=== PATIENT | female | born 1955 | race Caucasian/White ===

== ENCOUNTER 2016-12-31 18:36 | Inpatient (IN) ==
[2016-12-31] MEDS ORDERED: Insulin DETEMIR 100 UNIT/ML X5UNITS SQ SCH (23:45)
[2016-12-31] MEDS ORDERED: Insulin DETEMIR 100 UNIT/ML per UNIT SQ ONE (23:45)
[2016-12-31] MEDS ORDERED: Losartan/HCTZ 50-12.5 TABLET PO SCH (23:45)
[2017-01-01] MEDS: Insulin LISPRO 300 UNITS/3 ML VIAL SQ SCH ×5 (00:13→19:57)
[2017-01-01] MEDS: *HR* OxyCODONE ER (12 HR) 10 MG TABLET PO SCH ×3 (00:14→16:54)
[2017-01-01] MEDS: Famotidine 20 MG TABLET PO SCH ×3 (00:14→20:01)
[2017-01-01] MEDS: Ondansetron ODT 4 MG TAB.RAPDIS SL PRN ×3 (00:28→17:02)
[2017-01-01] MEDS: Losartan/HCTZ 50-12.5 TABLET PO SCH (07:42)
[2017-01-01] MEDS: Insulin DETEMIR 100 UNIT/ML X5UNITS SQ SCH ×2 (09:02→20:01)
--- NOTE | 2017-01-01 15:42 | Internal Med History&Physical ---
Date of Encounter: 01/01/17 Time of Encounter: 15:05 Assessment and Plan (1) Low back pain Current visit: No Status: Chronic I told her an open MRI is needed to further evaluate the central canal stenosis , foraminal stenosis, and disc herniations seen on lumbar CT scan. I will prescribe scheduled Tylenol, Naprosyn, gabapentin, and increased the scheduled dose of OxyContin. She will be given tramadol prn. Qualifiers: Chronicity: chronic Back pain laterality: right Sciatica presence: with sciatica Sciatica laterality: sciatica of right side Qualified Code(s): M54.41 - Lumbago with sciatica, right side; G89.29 - Other chronic pain (2) Type 2 diabetes mellitus Current visit: No Status: Chronic We will check hemoglobin A1c in a.m. Continue glipizide and metformin for now. We will do Accu-Cheks with SSI. Qualifiers: Diabetes mellitus complication status: without complication Diabetes mellitus assisted insulin use: with medical terminologist use Qualified Code(s): E11.9 - Type 2 diabetes mellitus without complications; Z79.4 - rn long term care (current) use of insulin (3) Hypertension Current visit: No Status: Chronic Continue Hyzaar and monitor blood pressure. Qualifiers: Hypertension type: essential hypertension Qualified Code(s): I10 - Essential (primary) hypertension Internal Medicine - H&P: HPI Chief complaint: Back and right hip pain Admitted From: Hospital to Hospital Transfer Plans for Post Hospital Care: Home History of present illness: Ms. Joe is a 61 year old female who was hospitalized at [facility] December 29 after presenting with worsening low back and right hip pain. She had some improvement in the pain during her hospital stay. She was seen by a pain management who recommended MRI but the patient declined a closed MRI stating she is claustrophobic. She was transferred to [facility] swing bed for inpatient rehabilitation therapy prior to returning to independent living. She states she has had chronic low back pain for several years. It has worsened over the past 4-6 months especially in the past month. She tried OTC ibuprofen, aspirin, and Tylenol at home prior to [facility] hospitalization. A CT of the LS spine during her [facility] stay showed severe central canal narrowing at L4-5 with mild narrowing at L3-4 and L5-S1. She had foraminal narrowing bilaterally at multiple levels. She had disc bulging present at multiple levels. She was treated with IV steroids and oral narcotics. Denies specific injury to her back or hip. She has a diagnosis of arthritis but denies gout or other known bone joint or muscle disorders. Past Med Surg Social Fam HX - Past Medical History Medical history: asthma, diabetes, hypertension Psychiatric history: no psych history - Past Surgical History Surgical History: hysterectomy - Social History Smoking Status: Never smoker Smokeless Tobacco Status: No Alcohol use: none Drug use: none - Family History Mother Hx Family Cardiac Disorders: Yes Internal Medicine - H&P: Meds Albuterol Sulfate [Albuterol Inhaler] 2 puff IH Q4HR PRN 01/20/16 [History] glipiZIDE [Glipizide] 10 mg PO BIDWM 01/20/16 [History] metFORMIN [Glucophage] 1,000 mg PO BIDWM 01/20/16 [History] Calcium Carbonate [Tums] 1,000 mg PO Q4HR PRN 12/29/16 [History] Insulin Glargine [Lantus] 38 unit SQ BID 12/29/16 [History] Potassium 500 mg PO DAILY 12/29/16 [History] Losartan/Hydrochlorothiazide [Hyzaar 100-25 Tablet] 1 tab PO DAILY 12/30/16 [ History] Allergies codeine Allergy (Verified 12/29/16 16:10) Rash All Systems PM: A 10-system review of systems was performed and is negative for pertinent findings except as documented above in the HPI. Review of systems: Gen.: She states her weight has been fairly stable in the past few months Cardiovascular: She has history of hypertension but denies [place] heart failure angina DVT or pulmonary embolus Respiratory: She is a lifelong nonsmoker. She has a diagnosis of asthma. She denies testing for TAMIA GI: She has had cholecystitis in the past but has not had cholecystectomy. She denies disorders of her liver or exocrine pancreas : She has had occasional UTI. She denies other kidney or bladder disorders. Neurologic: She denies large distribution strokes or seizures. She has been diagnosed with diabetic peripheral neuropathy Endocrine: She was diagnosed with DM 2 approximately age 48. She denies thyroid disease or hyperlipidemia Hematology/oncology: She denies blood disorders cancers or anemia Psychiatric: She denies anxiety depression or other mental health issues Musk skeletal: As per history of present illness - Constitutional Vitals: Temp Pulse Resp BP Pulse Ox 97.7 F 70 15 149/72 97 01/01/17 06:51 01/01/17 11:04 01/01/17 14:28 01/01/17 11:04 01/01/17 14:28 Exam: Gen.: She is a well-developed morbidly obese female who appears in mild-severe pain depending on position HEENT: Head is atraumatic and normocephalic. Eyes: EOMI. There is no scleral icterus. Mouth: Mucosa is moist Neck: Supple and nontender. There is no thyromegaly or adenopathy noted. Heart: Regular without murmurs gallops or ectopics Lungs: No wheezes or crackles are heard Abdomen: She has a large abdomen. It is nontender to palpation. Extremities: There is no cyanosis edema or clubbing noted. Dorsalis pedis and posterior tibial pulses are trace palpable bilaterally. She has no pain on internal or external rotation of the hips. She does have pain on straight leg raising the right leg but not the left. Neurologic: Mental status she is talkative and a good historian. Cranial nerves : Smile is symmetric. Forehead wrinkles bilaterally. Tongue protrudes midline. EOMI. Motor: There is no pronator drift. Ankle flexion and extension strength against resistance is 4/5 right leg and 5/5 left leg. Cerebellar: Finger to nose is intact bilaterally.
[2017-01-01] MEDS: *HR* Enoxaparin 40 MG/0.4 ML SYRINGE SQ SCH (16:50)
[2017-01-01] MEDS: Gabapentin 100 MG CAPSULE PO SCH (16:53)
[2017-01-01] MEDS: Acetaminophen 325 MG TABLET PO SCH (16:55)
[2017-01-02] MEDS: Acetaminophen 325 MG TABLET PO SCH ×4 (00:20→20:11)
[2017-01-02] MEDS: Ondansetron ODT 4 MG TAB.RAPDIS SL PRN ×4 (00:20→15:52)
[2017-01-02] MEDS: Gabapentin 100 MG CAPSULE PO SCH ×3 (00:21→15:53)
[2017-01-02] MEDS: *HR* OxyCODONE ER (12 HR) 10 MG TABLET PO SCH ×3 (00:21→15:52)
[2017-01-02] MEDS: traMADol 50 MG TABLET PO PRN ×2 (03:58→11:52)
[2017-01-02] MEDS: *HR* Enoxaparin 40 MG/0.4 ML SYRINGE SQ SCH (05:37)
[2017-01-02 06:09] LABS: Basophils # 0.1 K/mcL (0.0-0.2); Basophils % 0.6 %; Eosinophils # 0.2 K/mcL (0.0-0.6); Eosinophils % 1.7 %; Hematocrit 43.7 % (35.3-44.9); Hemoglobin 14.3 g/dL (11.5-15.4); Immature Granulocytes % 0.8 % (0-4); Lymphocytes # 4.1 K/mcL (0.6-4.6); Mean Corpuscular HGB Conc 32.7 g/dL (31.6-35.5); Mean Corpuscular Hemoglobin 29.7 pg (28.0-33.3); Mean Corpuscular Volume 90.7 fL (83.0-100.0); Mean Platelet Volume 10.7 fL (9.4-12.4); Monocytes # 0.6 K/mcL (0.0-1.3); Monocytes % 5.9 %; Neutrophils # 4.6 K/mcL (1.6-8.9); Platelet Count 294 K/mcL (140-400); Red Blood Count 4.82 M/mcL (3.82-4.97); Red Cell Distribution Width 13.9 % (11.5-14.5)
[2017-01-02 06:26] LABS: Alanine Aminotransferase 25 Units/L (0-55); Albumin 3.2 g/dL (3.5-5.0); Alkaline Phosphatase 81 Units/L (38-126); Aspartate Amino Transferase 18 Units/L (5-34); BUN/Creatinine Ratio 25 (6-26); Bilirubin,Total 0.4 mg/dL (0.2-1.2); Blood Urea Nitrogen 19 mg/dL (7-20); Calcium 8.9 mg/dL (8.6-10.8); Carbon Dioxide 30 mEq/L (19-29); Chloride 102 mEq/L (98-109); Globulin 3.3 g/dL (2.4-3.5); Glucose 161 mg/dL (70-99); Magnesium 2.2 mg/dL (1.6-2.6); Osmolality,Calculated 302 (280-300); Potassium 4.1 mEq/L (3.5-4.5); Sodium 143 mEq/L (136-145); Total Protein 6.5 g/dL (6.0-8.3); Uric Acid 6.8 mg/dL (2.6-6.0); eGFR For African Americans > 60 (> 60); eGFR For Non-African Americans > 60 (> 60)
[2017-01-02] MEDS: Famotidine 20 MG TABLET PO SCH ×2 (07:51→20:12)
[2017-01-02] MEDS: Losartan/HCTZ 50-12.5 TABLET PO SCH (07:51)
[2017-01-02] MEDS: Insulin LISPRO 300 UNITS/3 ML VIAL SQ SCH ×4 (07:52→20:12)
--- NOTE | 2017-01-02 10:53 | Internal Med Progress Note ---
Date of Encounter: 01/02/17 Time of Encounter: 10:45 - Assessment and plan (1) Low back pain Current Visit: No Status: Chronic Assessment and plan: January 02. Awaiting PA for open MRI. Continue Tylenol, Naprosyn, gabapentin, and OxyContin scheduled with tramadol when necessary. Qualifiers: Chronicity: chronic Back pain laterality: right Sciatica presence: with sciatica Sciatica laterality: sciatica of right side Qualified Code(s): M54.41 - Lumbago with sciatica, right side; G89.29 - Other chronic pain (2) Type 2 diabetes mellitus Current Visit: No Status: Chronic Assessment and plan: January 02. Hemoglobin A1c is pending. Continue glipizide and metformin with Accu -Cheks and SSI. Qualifiers: Diabetes mellitus complication status: without complication Diabetes mellitus services manager insulin use: with correction use Qualified Code(s): E11.9 - Type 2 diabetes mellitus without complications; Z79.4 - group home (current) use of insulin (3) Hypertension Current Visit: No Status: Chronic Assessment and plan: January 02. Continue Hyzaar and monitor blood pressure. Qualifiers: Hypertension type: essential hypertension Qualified Code(s): I10 - Essential (primary) hypertension (4) Hyperuricemia Current Visit: Yes Status: Acute Assessment and plan: January 02. Uric acid level returned slightly elevated at 6.8. We will start low- dose allopurinol. - Subjective Interval history: January 02. She has no new complaints and states her pain is improved today. - Constitutional Vitals: Temp Pulse Resp BP Pulse Ox 97.5 F L 69 16 151/74 96 01/02/17 06:56 01/02/17 06:56 01/02/17 06:56 01/02/17 06:56 01/02/17 06:56 Exam: She is resting in bed and appears comfortable. She was able to sit up on the side of bed without significant pain. I reviewed her medications and lab results. Internal Medicine: Result - Labs CBC & Chem 7: 01/02/17 05:23 01/02/17 05:23 Labs: Short CBC 01/02/17 Range/Units 05:23 WBC 9.6 (4.3-11.1) K/mcL Hgb 14.3 (11.5-15.4) g/dL Hct 43.7 (35.3-44.9) % Plt Count 294 (140-400) K/mcL Neutrophils # 4.6 (1.6-8.9) K/mcL BMP 01/02/17 05:23 Sodium 143 Potassium 4.1 Chloride 102 Carbon Dioxide 30 H BUN 19 Creatinine 0.77 Glucose 161 H Calcium 8.9 Liver Function 01/02/17 Range/Units 05:23 Total Bilirubin 0.4 (0.2-1.2) mg/dL AST 18 (5-34) Units/L ALT 25 (0-55) Units/L Alkaline Phosphatase 81 (38-126) Units/L Albumin 3.2 L (3.5-5.0) g/dL Consult Discharge Plan - Plan Referrals: Kiley Pillai, SUPERVISOR FLOOR ASSEMBLY [Primary Care Provider] - 1 week
[2017-01-02] MEDS: Insulin DETEMIR 100 UNIT/ML X5UNITS SQ SCH ×2 (11:07→20:12)
[2017-01-02 12:15] LABS: Hemoglobin A1C 7.6 %
[2017-01-03] MEDS: Acetaminophen 325 MG TABLET PO SCH ×4 (00:27→17:23)
[2017-01-03] MEDS: *HR* OxyCODONE ER (12 HR) 10 MG TABLET PO SCH ×3 (00:27→17:23)
[2017-01-03] MEDS: Gabapentin 100 MG CAPSULE PO SCH ×3 (00:28→17:24)
[2017-01-03] MEDS: Ondansetron ODT 4 MG TAB.RAPDIS SL PRN ×2 (01:03→08:15)
[2017-01-03] MEDS: *HR* Enoxaparin 40 MG/0.4 ML SYRINGE SQ SCH (06:23)
[2017-01-03] MEDS: Famotidine 20 MG TABLET PO SCH ×2 (08:10→19:57)
[2017-01-03] MEDS: Insulin LISPRO 300 UNITS/3 ML VIAL SQ SCH ×4 (08:11→19:54)
[2017-01-03] MEDS: Insulin DETEMIR 100 UNIT/ML X5UNITS SQ SCH ×2 (08:36→19:57)
[2017-01-03] MEDS: Losartan/HCTZ 50-12.5 TABLET PO SCH (09:49)
--- NOTE | 2017-01-03 10:59 | Internal Med Progress Note ---
Date of Encounter: 01/03/17 Time of Encounter: 10:50 - Assessment and plan (1) Low back pain Current Visit: No Status: Chronic Assessment and plan: January 02. Awaiting PA for open MRI. Continue Tylenol, Naprosyn, gabapentin, and OxyContin scheduled with tramadol when necessary. January 03. MRI scheduled at 1 PM 01/04/2017. Continue present medication regimen. Qualifiers: Chronicity: chronic Back pain laterality: right Sciatica presence: with sciatica Sciatica laterality: sciatica of right side Qualified Code(s): M54.41 - Lumbago with sciatica, right side; G89.29 - Other chronic pain (2) Type 2 diabetes mellitus Current Visit: No Status: Chronic Assessment and plan: January 02. Hemoglobin A1c is pending. Continue glipizide and metformin with Accu -Cheks and SSI. . Hemoglobin A1c was 7.6%. Continue glipizide and metformin with Accu- Cheks and SSI. Qualifiers: Diabetes mellitus complication status: without complication Diabetes mellitus fpc insulin use: with fpc use Qualified Code(s): E11.9 - Type 2 diabetes mellitus without complications; Z79.4 - terminal manager (current) use of insulin (3) Hypertension Current Visit: No Status: Chronic Assessment and plan: January 02. Continue Hyzaar and monitor blood pressure. Qualifiers: Hypertension type: essential hypertension Qualified Code(s): I10 - Essential (primary) hypertension (4) Hyperuricemia Current Visit: Yes Status: Acute Assessment and plan: January 02. Uric acid level returned slightly elevated at 6.8. We will start low- dose allopurinol. January 03. Continue allopurinol. - Subjective Interval history: January 02. She has no new complaints and states her pain is improved today. January 03. She has no new complaints. She is still having pain, mostly now in her right hip. She is slightly emotional because her was admitted to a [facility] with chest pain earlier today. - Constitutional Vitals: Temp Pulse Resp BP Pulse Ox 97.8 F 79 16 148/75 97 01/03/17 06:34 01/03/17 06:34 01/03/17 06:34 01/03/17 06:34 01/03/17 06:34 Exam: She is lying in bed and appears in slight pain. Her conversation is appropriate. I reviewed her medications and lab results. Internal Medicine: Result - Labs CBC & Chem 7: 01/02/17 05:23 01/02/17 05:23 Consult Discharge Plan - Plan Referrals: Kiley Pillai, CHARLINE [Primary Care Provider] - 1 week
[2017-01-04] MEDS: *HR* OxyCODONE ER (12 HR) 10 MG TABLET PO SCH ×3 (01:24→17:11)
[2017-01-04] MEDS: Acetaminophen 325 MG TABLET PO SCH ×4 (01:25→17:11)
[2017-01-04] MEDS: Gabapentin 100 MG CAPSULE PO SCH ×3 (01:25→17:11)
[2017-01-04] MEDS: *HR* Enoxaparin 40 MG/0.4 ML SYRINGE SQ SCH (06:28)
[2017-01-04] MEDS: Insulin LISPRO 300 UNITS/3 ML VIAL SQ SCH ×4 (07:38→21:06)
[2017-01-04] MEDS: Famotidine 20 MG TABLET PO SCH ×2 (10:06→21:05)
[2017-01-04] MEDS: Insulin DETEMIR 100 UNIT/ML X5UNITS SQ SCH ×2 (10:07→21:29)
[2017-01-04] MEDS: Losartan/HCTZ 50-12.5 TABLET PO SCH (10:09)
[2017-01-04] MEDS ORDERED: ALPRAZolam 0.5 MG TABLET PO ONE (10:26)
--- NOTE | 2017-01-04 20:37 | Internal Med Progress Note ---
Date of Encounter: 01/04/17 Time of Encounter: 20:25 - Assessment and plan (1) Low back pain Current Visit: No Status: Chronic Assessment and plan: January 02. Awaiting PA for open MRI. Continue Tylenol, Naprosyn, gabapentin, and OxyContin scheduled with tramadol when necessary. January 03. MRI scheduled at 1 PM 01/04/2017. Continue present medication regimen. January 04. Continue present regimen. We discussed that since therapy seems more painful than beneficial she will probably go home January 06 Qualifiers: Chronicity: chronic Back pain laterality: right Sciatica presence: with sciatica Sciatica laterality: sciatica of right side Qualified Code(s): M54.41 - Lumbago with sciatica, right side; G89.29 - Other chronic pain (2) Type 2 diabetes mellitus Current Visit: No Status: Chronic Assessment and plan: January 02. Hemoglobin A1c is pending. Continue glipizide and metformin with Accu -Cheks and SSI. January 03. Hemoglobin A1c was 7.6%. Continue glipizide and metformin with Accu- Cheks and SSI. January 04. Blood sugars were reviewed. Will increase Levemir to 42 units twice a day. Qualifiers: Diabetes mellitus complication status: without complication Diabetes mellitus intermodal truck driver insulin use: with [facility] use Qualified Code(s): E11.9 - Type 2 diabetes mellitus without complications; Z79.4 - oysterman (current) use of insulin (3) Hypertension Current Visit: No Status: Chronic Assessment and plan: January 02. Continue Hyzaar and monitor blood pressure. Qualifiers: Hypertension type: essential hypertension Qualified Code(s): I10 - Essential (primary) hypertension (4) Hyperuricemia Current Visit: Yes Status: Acute Assessment and plan: January 02. Uric acid level returned slightly elevated at 6.8. We will start low- dose allopurinol. January 03. Continue allopurinol. - Subjective Interval history: January 02. She has no new complaints and states her pain is improved today. January 03. She has no new complaints. She is still having pain, mostly now in her right hip. She is slightly emotional because her was admitted to a [facility] with chest pain earlier today. January 04. She has no new complaints. She went for an open MRI today but could not tolerate the compression on her right hip and was unable to complete the study. MRI was at [place] rather than [place]. She thinks overall her pain is lessening - Constitutional Vitals: Temp Pulse Resp BP Pulse Ox 97.8 F 97 16 125/67 92 01/04/17 18:37 01/04/17 18:37 01/04/17 18:37 01/04/17 18:37 01/04/17 18:37 Exam: She is resting in bed and appears in minimal distress at present time. Her affect is bright and cheerful overall. I reviewed her medications and lab results. Internal Medicine: Result - Labs CBC & Chem 7: 01/02/17 05:23 01/02/17 05:23 Consult Discharge Plan - Plan Referrals: Kiley Pillai, SAP TECHNICAL DEVELOPER [Primary Care Provider] - 1 week
[2017-01-05] MEDS: Acetaminophen 325 MG TABLET PO SCH ×4 (00:44→17:37)
[2017-01-05] MEDS: Gabapentin 100 MG CAPSULE PO SCH ×3 (00:45→16:15)
[2017-01-05] MEDS: *HR* OxyCODONE ER (12 HR) 10 MG TABLET PO SCH ×3 (00:45→16:16)
[2017-01-05] MEDS: *HR* Enoxaparin 40 MG/0.4 ML SYRINGE SQ SCH (06:06)
[2017-01-05] MEDS: Insulin LISPRO 300 UNITS/3 ML VIAL SQ SCH ×4 (07:49→21:42)
[2017-01-05] MEDS: Famotidine 20 MG TABLET PO SCH ×2 (08:50→21:41)
[2017-01-05] MEDS: Losartan/HCTZ 50-12.5 TABLET PO SCH (08:50)
[2017-01-05] MEDS: Insulin DETEMIR 100 UNIT/ML X5UNITS SQ SCH ×2 (08:52→21:41)
[2017-01-05] MEDS ORDERED: MOM Conc 10 ML UD.LIQ PO ONE (13:21)
[2017-01-06] MEDS: Gabapentin 100 MG CAPSULE PO SCH ×2 (00:02→07:44)
[2017-01-06] MEDS: Acetaminophen 325 MG TABLET PO SCH ×3 (00:02→12:10)
[2017-01-06] MEDS: *HR* OxyCODONE ER (12 HR) 10 MG TABLET PO SCH ×2 (00:02→07:44)
[2017-01-06] MEDS: *HR* Enoxaparin 40 MG/0.4 ML SYRINGE SQ SCH (06:25)
[2017-01-06 07:07] VITALS: BP 121/73
[2017-01-06] MEDS: Famotidine 20 MG TABLET PO SCH (07:44)
[2017-01-06] MEDS: Insulin LISPRO 300 UNITS/3 ML VIAL SQ SCH ×2 (07:45→12:09)
[2017-01-06] MEDS: Ondansetron ODT 4 MG TAB.RAPDIS SL PRN (07:49)
[2017-01-06] MEDS: Losartan/HCTZ 50-12.5 TABLET PO SCH (07:49)
[2017-01-06] MEDS: Insulin DETEMIR 100 UNIT/ML X5UNITS SQ SCH (12:10)
--- NOTE | 2017-01-06 14:30 | Discharge Summary ---
Date of Encounter: 01/06/17 Time of Encounter: 14:20 - Discharge Diagnosis (1) Low back pain Priority: Primary Status: Chronic Qualifiers: Chronicity: chronic Back pain laterality: right Sciatica presence: with sciatica Sciatica laterality: sciatica of right side Qualified Code(s): M54.41 - Lumbago with sciatica, right side; G89.29 - Other chronic pain (2) Type 2 diabetes mellitus Priority: Secondary Status: Chronic Qualifiers: Diabetes mellitus complication status: without complication Diabetes mellitus terminal gauger supervisor insulin use: with terminal gauger supervisor use Qualified Code(s): E11.9 - Type 2 diabetes mellitus without complications; Z79.4 - terminal gauger supervisor (current) use of insulin (3) Hypertension Priority: Secondary Status: Chronic Qualifiers: Hypertension type: essential hypertension Qualified Code(s): I10 - Essential (primary) hypertension (4) Hyperuricemia Priority: Secondary Status: Acute - Discharge Medications Prescriptions: Gabapentin [Neurontin] 200 mg PO Q8HR #42 capsule OxyCODONE ER (12 HR) [OxyCONTIN] 20 mg PO Q12HR #14 tab.er.12h Home Medications: Albuterol Sulfate [Albuterol Inhaler] 2 puff IH Q4HR PRN 01/20/16 [History] glipiZIDE [Glipizide] 10 mg PO BIDWM 01/20/16 [History] metFORMIN [Glucophage] 1,000 mg PO BIDWM 01/20/16 [History] Calcium Carbonate [Tums] 1,000 mg PO Q4HR PRN 12/29/16 [History] Insulin Glargine [Lantus] 38 unit SQ BID 12/29/16 [History] Potassium 500 mg PO DAILY 12/29/16 [History] Losartan/Hydrochlorothiazide [Hyzaar 100-25 Tablet] 1 tab PO DAILY 12/30/16 [ History] Acetaminophen [Tylenol] 650 mg PO Q6HR tablet 01/06/17 [Rx] Gabapentin [Neurontin] 200 mg PO Q8HR #42 capsule 01/06/17 [Rx] Naproxen [Naprosyn] 500 mg PO BIDWM tablet 01/06/17 [Rx] OxyCODONE ER (12 HR) [OxyCONTIN] 20 mg PO Q12HR #14 tab.er.12h 01/06/17 [Rx] Allergies/Adverse Reactions: Allergies codeine Allergy (Verified 12/29/16 16:10) Rash Date of admission: 12/31/16 21:47 Primary care physician: Kiley Pillai CNP Consults: 01/01/17 03:39 Consult to Physical Therapy [CONS] Routine Comment: Evaluate, develop and implement POC Reason for Consult: Swing bed, spinal stenosis, weakness. 01/01/17 07:17 OT [Consult to Occupational Therapy] [CONS] Routine Comment: Evaluate, develop and implement POC Reason for Consult: Spinal stenosis, right lower extremity sever pain, difficulty walking. 01/01/17 10:40 Consult to Nutrition [CONS] Routine Comment: Weight Diesel Lube Tech Provider: NUTRITION Reason for Dietary Consult: Diet Education - Patient Status Disposition: Home, Self-Care Functional capacity at discharge: wheelchair bound - Discharge Instructions Follow Up With: Kiley Pillai CNP [Primary Care Provider] - 1 week - Diet and Activity Activity: as per physical therapy, resume usual activities as tolerated Diet: diabetic diet Hospital course: Ms. Joe is a 61 year old female who was hospitalized at [facility] December 29 after presenting with worsening low back and right hip pain. She had some improvement in the pain during her hospital stay. She was seen by a pain management who recommended MRI but the patient declined a closed MRI stating she is claustrophobic. She was transferred to [facility] swing bed for inpatient rehabilitation therapy prior to returning to independent living. Initial orders were written by the discharging physicians at [facility]. I saw her on January 01 and performed a swing bed history and physical. I started her on scheduled Tylenol, Naprosyn, gabapentin, and OxyContin. She had some improvement in her low back pain on this regimen. I ordered an open MRI of LS spine. She was transported by ambulance to [facility] since there was no option available closer. 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 On January 06 she felt she was not benefiting significantly from therapy and it was simply causing additional pain in her right hip. She wished to be discharged home. She will follow with her PCP Kiley Pillai CNP within 1 week. Her PCP can reorder the MRI and/or refer her to a spine surgeon. She was given a prescription for a manual wheelchair since she has very limited mobility and this will be her primary mode of transportation within the home as well as outside the home. - Time Spent with Patient Total time spent providing and/or coordinating discharge services: - Constitutional Vitals: Temp Pulse Resp BP Pulse Ox 98.9 F 85 18 121/73 94 01/06/17 06:30 01/06/17 06:30 01/06/17 06:30 01/06/17 06:30 01/06/17 06:30
== END 2017-01-06 15:45 | disposition home or self-care (01) | DRG 552 ==
LOC: INPPIK 21:47
PROVIDERS: ADMIT Internal Medicine; ATTEND Internal Medicine